=== PATIENT | male | born 1965 | race Caucasian/White ===

== ENCOUNTER 2018-10-01 19:30 | Inpatient (IN) | payer OTHER ==
[~2018-10-01] VITALS: Ht 185.4 cm; Wt 83.9 kg
[2018-10-01] MEDS ORDERED: WELLBUTRIN SR150 MG (20:02)
[2018-10-01] MEDS ORDERED: METFORMIN HCL1000 M1 (20:02)
[2018-10-01] MEDS ORDERED: OMEGA 3 1,0001 EACH (20:03)
[2018-10-01] MEDS ORDERED: VITAMIN C100 MG (20:03)
[2018-10-01] MEDS ORDERED: MAGNESIUM250 MG (20:03)
[2018-10-01] MEDS ORDERED: FOLIC ACID0.4 MG (20:04)
[2018-10-01] MEDS ORDERED: SYNTHROID75 MCG (20:04)
[2018-10-01] MEDS ORDERED: LIPITOR20 MG (20:05)
--- NOTE | 2018-10-01 20:08 | NUR ---
PACIENTE ALERTA Y ORIENTADO X3. REFIERE VENIR POR DOLOR EN ABDOMEN Y SOPHIE EPISODIOS DE EVACUACIONES CON [place] COLOR SAHNI INTENSO DESDE CHESTER. SE UBICA A PACIENTE EN AREA DE OBSERVACION PARA EVALUACION MEDICA.
--- NOTE | 2018-10-01 20:46 | NUR ---
TX. OFRECIDO POR MIS. JIMENEZ QUIEN ORIENTA AL PACIENTE SOBRE EL TX. EXTRAE MUESTRAS DE AK[place]UA BAJO MEDIDAS ASEPTICAS ROTULA Y ENVIA AL LABORATORIO. CANALIZA Y COLOCA H/L.
--- NOTE | 2018-10-02 08:50 | NUR ---
SE RECIBE DE TURNO ANTERIOR. PACIENTE MASCULINO. ALERTA Y ORIENTADO EN SOPHIE ESFERAS. BUEN PATRON RESPIRATORIO. PIEL TIBIA AL TACTO. CANALIZACION PATENTE, KARI DE EDEMA Y/O ENROJECIMIENTO RECIBIENDO 0.9%NSS @ 166 ML/HR. PACIENTE EN ESPERA DE CONSULTA CON DR ASHRAF.
--- NOTE | 2018-10-02 16:39 | NUR ---
SE RECIBE A PTE ALERTA Y ORIENTADO X3 EN CRYSTAL CON BARANDAS ELEVADAS AL MOMENTO. PTE REFIERE DOLOR LEVE AL MOMENTO. PTE SE OBSERVA CON 0.9NSS BAJANDO A 166ML/HR. PTE SE ENCUENTRA EN ESPERA DE CONSULTA CON DR. ASHRAF POR SANGRADO RECTAL. PTE SE CONTINUA MONITORIANDO POR CAMBIOS.
== END 2018-10-07 10:27 | disposition home or self-care (01) | DRG 378 ==
LOC: ER 19:30 → SURH 10-02 19:02 → SURG 10-02 19:02 → SURH 10-02 19:58
PROVIDERS: ADMIT Colon & Rectal Surgery
DX: K62.5 Hemorrhage of anus and rectum (principal); C18.9 Malignant neoplasm of colon, unspecified; C78.01 Secondary malignant neoplasm of right lung; C78.7 Secondary malignant neoplasm of liver and intrahepatic bile duct; D50.0 Iron deficiency anemia secondary to blood loss (chronic); N20.0 Calculus of kidney; E11.9 Type 2 diabetes mellitus without complications; E78.49 Other hyperlipidemia; E03.8 Other specified hypothyroidism; F41.8 Other specified anxiety disorders; F32.89 Other specified depressive episodes; Z92.21 Personal history of antineoplastic chemotherapy